=== PATIENT | male | born 1970 | race Two or more races ===

== ENCOUNTER → 2017-07-29 | Outpatient (REF) | payer MEDICARE, MEDICAID ==
[~2017-07-29] MED LIST: /CELE20CA; /CELE20CA OR; COLA100C2; DILA2TAB OR; EFFE37.527 PO; FLEC1.3D TD; FLEXERIL; FLEXERIL OR; LEVA750T7 PO; LIDO5DIS; LIDO5DIS TD; MS C15TA5 OR; NEUR300C; NEUR300C OR; NEUR600T PO; OPAN10TA16; OPAN10TA16 OR; OPANA ER; TOPA1TAB PO; TPS cream TOP; TRAM50TA2; TRAM50TA2 OR
[2017-07-29 11:24] LABS: BASO % 0.4 % (0.0-1.0); EOS # 0.2 K/mm3 (0.0-0.50); EOS % 2.4 % (0.0-3.0); LARGE UNSTAINED CELL # 0.1 K/mm3 (0.0-0.4); LYMPH # 1.7 K/mm3 (1.5-4.5); LYMPH % 25.1 % (24.0-44.0); MEAN CORPUSCULAR HGB CONC 35.7 g/dl (32.0-36.5); MEAN CORPUSCULAR VOLUME 89.4 fl (80.0-96.0); MONO # 0.3 K/mm3 (0.0-0.8); MONO % 5.1 % (0.0-5.0); NEUTROPHILS # 4.1 K/mm3 (1.8-7.7); PLATELET COUNT, AUTOMATED 233 k/mm3 (150-450); RED CELL DISTRIBUTION WIDTH 12.5 % (11.5-14.5); WHITE BLOOD COUNT 6.4 K/mm3 (4.0-10.0)
[2017-07-29 11:37] LABS: ALBUMIN 3.6 GM/DL (3.2-5.2); ALBUMIN/GLOBULIN RATIO 1.06 (1.00-1.93); BILIRUBIN,TOTAL 0.7 MG/DL (0.2-1.0); CREATININE FOR GFR 1.38 MG/DL (0.70-1.30); GLOMERULAR FILTRATION RATE 58.5 (>60)
== END ==
LOC: M SFHCPLAZ 09:36
PROVIDERS: ATTEND Physician Assistant Medical
DX: Z12.11 Encounter for screening for malignant neoplasm of colon (principal); Z13.220 Encounter for screening for lipoid disorders; Z12.5 Encounter for screening for malignant neoplasm of prostate; Z79.899 Other long term (current) drug therapy
CPT/HCPCS: 36415; 80053; 80061; 85025; G0103

== ENCOUNTER 2017-08-06 01:03 | Emergency (ER) | payer MEDICARE, MEDICAID ==
[~2017-08-06] VITALS: Ht 180.3 cm; Wt 103.7 kg
[~2017-08-06 01:03] MED LIST changes: -LEVA750T7 PO
[2017-08-06 01:07] VITALS: BP 123/79
[2017-08-06] MEDS ORDERED: IPRATROPIUM 0.5MG/ALBUTEROL 2.5MG INH SOL UD 3ML (DUONEB)(J7620) NEB ONE (02:15)
[2017-08-06 02:56] LABS: BASO % 0.4 % (0.0-1.0); EOS # 0.3 K/mm3 (0.0-0.50); EOS % 4.2 % (0.0-3.0); LARGE UNSTAINED CELL # 0.1 K/mm3 (0.0-0.4); LARGE UNSTAINED CELL % 1.7 % (0.0-4.0); LYMPH # 1.1 K/mm3 (1.5-4.5); LYMPH % 17.4 % (24.0-44.0); MEAN CORPUSCULAR HEMOGLOBIN 31.9 pg (27.0-33.0); MEAN CORPUSCULAR HGB CONC 35.8 g/dl (32.0-36.5); MEAN CORPUSCULAR VOLUME 89.3 fl (80.0-96.0); MONO # 0.3 K/mm3 (0.0-0.8); MONO % 5.5 % (0.0-5.0); NEUTROPHILS # 4.4 K/mm3 (1.8-7.7); NEUTROPHILS % 70.7 % (36.0-66.0); PLATELET COUNT, AUTOMATED 224 k/mm3 (150-450); RED CELL DISTRIBUTION WIDTH 12.2 % (11.5-14.5); WHITE BLOOD COUNT 6.2 K/mm3 (4.0-10.0)
[2017-08-06 03:06] LABS: ANION GAP 10 MEQ/L (8-16); BLOOD UREA NITROGEN 7 MG/DL (7-18); CALCIUM LEVEL 8.2 MG/DL (8.5-10.1); CARBON DIOXIDE LEVEL 28 MEQ/L (21-32); CHLORIDE LEVEL 107 MEQ/L (98-107); CREATININE FOR GFR 1.35 MG/DL (0.70-1.30); GLOMERULAR FILTRATION RATE > 60.0 (>60); GLUCOSE, FASTING 102 MG/DL (70-105); POTASSIUM SERUM 3.6 MEQ/L (3.5-5.1); SODIUM LEVEL 145 MEQ/L (136-145)
[2017-08-06] MEDS ORDERED: LEVA750T7 PO (03:42)
[2017-08-06] MEDS ORDERED: LevoFLOXacin 750 MG TABLET PO ONE (03:45)
[2017-08-06] MEDS ORDERED: ALBUTEROL 90 MCG/ACT 8GM HFA INHALER INH ONE (03:45)
--- NOTE | 2017-08-06 07:58 | REP ---
Clinical: Cough and dyspnea. Technique: PA and lateral. Comparison: 02/11/2012. Findings: Linear plate-like atelectasis in the left mid lung zone. Mediastinum and cardiac silhouette normal. Remainder of lung khanna are clear. No effusion. No pneumothorax. Skeletal structures are intact. Impression: Linear plate-like atelectasis in the left mid/lower lung zone. Signed by Jt Castro MD 08/06/2017 07:49 A
== END 2017-08-06 04:06 | disposition home or self-care (01) ==
LOC: M ED 01:03
DX: J18.9 Pneumonia, unspecified organism (principal)

== ENCOUNTER → 2017-08-20 | Outpatient (CLI) | payer MEDICARE, MEDICAID ==
[~2017-08-20] MED LIST changes: +LEVA750T7 PO
--- NOTE | 2017-08-21 06:48 | EEG ---
DATE OF PROCEDURE: 08/20/2017 REFERRING PHYSICIAN: Amrita Rae DIAGNOSIS: Convulsions. EEG NUMBER: [id number] HISTORY: The patient is a 46-year-old man with history of seizures. He stopped taking medications few years ago. He has not had recurrent seizures. This EEG was done to rule out epileptic potential. He is currently not taking any medications. TECHNICAL DESCRIPTION: This digital EEG was recorded by 21 scalp, ear and two EKG electrodes and was reviewed in bipolar and referential montages following reformatting in 10-20 international electrode placement system. INTERPRETATION: The patient was noted to be in awake and drowsy states during this EEG. Resting awake background rhythm consisted of well-formed posterior dominant rhythm with anterior/posterior gradient comprising of 9 Hz alpha activity measuring 15-40 microvolts in amplitude which was symmetric and reactive to eye opening. Anteriorly low voltage and mixed frequency activity was noted. Attenuation of posterior dominant rhythm was seen during transition into drowsiness. No sleep was achieved. Hyperventilation elicited mild theta slowing of background rhythm. Photic stimulation at 3-30 Hz elicited symmetric photic driving, especially at mid frequencies. No focal, lateralizing or epileptiform abnormalities were seen. No clinical or electrographic seizures were recorded. CONCLUSION: This EEG in awake and drowsy states is within normal limits.
== END ==
LOC: M SLEEP 08:23
PROVIDERS: ATTEND Physician Assistant Medical
DX: R56.9 Unspecified convulsions (principal)

== ENCOUNTER 2018-05-24 16:34 | Emergency (ER) | payer MEDICARE, MEDICAID ==
[2018-05-24] MEDS: LIDOCAINE 2% MDV 20 ML VIAL SC (19:45)
== END 2018-05-24 20:30 | disposition left against medical advice (07) ==
LOC: M ED 16:34
DX: S91.111A Laceration without foreign body of right great toe without damage to nail, initial encounter (principal); S93.104A Unspecified dislocation of right toe(s), initial encounter; W23.0XXA Caught, crushed, jammed, or pinched between moving objects, initial encounter; Y92.099 Unspecified place in other non-institutional residence as the place of occurrence of the external cause; Y93.9 Activity, unspecified; Y99.0 Civilian activity done for income or pay; Z53.21 Procedure and treatment not carried out due to patient leaving prior to being seen by health care provider
CPT/HCPCS: 73660

== ENCOUNTER → 2018-05-28 | Outpatient (CLI) | payer MEDICARE, MEDICAID | LOC: M WUC 08:30 | DX: S92.422D Displaced fracture of distal phalanx of left great toe, subsequent encounter for fracture with routine healing (principal); S93.112 Dislocation of interphalangeal joint of left great toe | CPT/HCPCS: 73630; G0463 ==

== ENCOUNTER → 2018-07-23 | Outpatient (REF) | payer MEDICARE, MEDICAID ==
[2018-07-23 13:39] LABS: BASO % 0.4 % (0.0-1.0); EOS # 0.2 10^3/uL (0.0-0.50); EOS % 2.2 % (0.0-3.0); HEMATOCRIT 47.1 % (42.0-52.0); HEMOGLOBIN 15.9 g/dl (13.5-17.5); IMMATURE GRANULOCYTE % 0.4 % (0-3.0); LYMPH # 1.8 10^3/uL (1.5-4.5); LYMPH % 22.3 % (24.0-44.0); MEAN CORPUSCULAR HEMOGLOBIN 31.1 pg (27.0-33.0); MEAN CORPUSCULAR HGB CONC 33.8 g/dl (32.0-36.5); MONO # 0.5 10^3/uL (0.0-0.8); NEUTROPHILS # 5.7 10^3/uL (1.8-7.7); NEUTROPHILS % 68.7 % (36.0-66.0); PLATELET COUNT, AUTOMATED 273 10^3/uL (150-450); RED BLOOD COUNT 5.12 10^6/uL (4.30-6.10); RED CELL DISTRIBUTION WIDTH 13.1 % (11.5-14.5); WHITE BLOOD COUNT 8.2 10^3/uL (4.0-10.0)
[2018-07-23 14:41] LABS: ALBUMIN 3.6 GM/DL (3.2-5.2); ALKALINE PHOSPHATASE 131 U/L (45-117); ALT/SGPT 47 U/L (12-78); ANION GAP 6 MEQ/L (8-16); AST/SGOT 27 U/L (7-37); BILIRUBIN,TOTAL 0.5 MG/DL (0.2-1.0); BLOOD UREA NITROGEN 13 MG/DL (7-18); CALCIUM LEVEL 8.7 MG/DL (8.5-10.1); CARBON DIOXIDE LEVEL 30 MEQ/L (21-32); CHLORIDE LEVEL 104 MEQ/L (98-107); CHOLESTEROL LEVEL 226 MG/DL (<200); CHOLESTEROL RISK RATIO 5.947 (<5); CREATININE FOR GFR 1.28 MG/DL (0.70-1.30); GLOMERULAR FILTRATION RATE > 60.0 (>60); GLUCOSE, FASTING 91 MG/DL (70-100); HDL CHOLESTEROL 38 MG/DL (>40); LDL CHOLESTEROL 131.4 MG/DL (<100); NON-HDL-C 188 MG/DL; PSA SCREENING 1.37 NG/ML (< 4.0); SODIUM LEVEL 140 MEQ/L (136-145); TOTAL PROTEIN 7.2 GM/DL (6.4-8.2); TRIGLYCERIDES LEVEL 283 MG/DL (<150)
== END ==
LOC: M SFHCPLAZ 10:45
DX: S92.422D Displaced fracture of distal phalanx of left great toe, subsequent encounter for fracture with routine healing (principal); R56.9 Unspecified convulsions (principal); Z12.5 Encounter for screening for malignant neoplasm of prostate; Z13.220 Encounter for screening for lipoid disorders; Z79.899 Other long term (current) drug therapy
CPT/HCPCS: 80053

== ENCOUNTER 2020-01-28 09:22 | Emergency (ER) | payer MEDICAID, MEDICARE, OTHER ==
[~2020-01-28] VITALS: Ht 182.9 cm; Wt 95.5 kg
[~2020-01-28 09:22] MED LIST changes: -/CELE20CA; -/CELE20CA OR; +CELE1CAP4; +CELE1CAP4 OR; +EFFE37.5 PO; -EFFE37.527 PO; +KEFL500C17 PO
[2020-01-28 09:27] VITALS: BP 112/73
[2020-01-28] MEDS ORDERED: ADACEL/BOOSTRIX VACCINE (DIPHTH/PERTUSS/ACELL/TETANUS)0.5ML SYR (90715) IM ONE (10:15)
[2020-01-28 10:33] LABS: BASO % 0.2 % (0.0-1.0); EOS # 0.1 10^3/uL (0.0-0.5); EOS % 0.9 % (0.0-3.0); LYMPH # 1.1 10^3/uL (1.5-5.0); LYMPH % 10.6 % (24.0-44.0); MEAN CORPUSCULAR HEMOGLOBIN 31.2 pg (27.0-33.0); MEAN CORPUSCULAR HGB CONC 34.1 g/dl (32.0-36.5); MEAN CORPUSCULAR VOLUME 91.5 fl (80.0-96.0); MONO # 0.5 10^3/uL (0.0-0.8); NEUTROPHILS # 8.4 10^3/uL (1.5-8.5); NEUTROPHILS % 82.8 % (36.0-66.0); PLATELET COUNT, AUTOMATED 240 10^3/uL (150-450); RED BLOOD COUNT 4.81 10^6/uL (4.30-6.10); WHITE BLOOD COUNT 10.1 10^3/uL (4.0-10.0)
[2020-01-28 10:57] LABS: ALBUMIN 3.8 GM/DL (3.2-5.2); BILIRUBIN,DIRECT 0.2 MG/DL (0.0-0.2); BILIRUBIN,TOTAL 0.7 MG/DL (0.2-1.0); CALCIUM LEVEL 8.5 MG/DL (8.5-10.1); CREATININE FOR GFR 1.45 MG/DL (0.70-1.30); GLOMERULAR FILTRATION RATE 54.6 (>56); POTASSIUM SERUM 4.2 MEQ/L (3.5-5.1); TOTAL PROTEIN 7.4 GM/DL (6.4-8.2)
--- NOTE | 2020-01-28 11:28 | REP ---
CT BRAIN WITHOUT IV CONTRAST: CT brain performed without IV contrast. Axial images are obtained with coronal reconstruction images. The ventricles are normal in size and position with no midline shift or mass effect. Wood-white differentiation is well maintained. There is no acute intracranial hemorrhage or extra-axial fluid collection. No skull fracture is seen. Mild fluid is seen in the right maxillary sinus. IMPRESSION: No evidence of acute intracranial hemorrhage, midline shift, or mass effect. No skull fracture is seen. There is mild fluid in the right maxillary sinus. Electronically Signed by Manjeet Wood MD 01/28/2020 06:42 P
--- NOTE | 2020-01-28 11:37 | REP ---
CT CERVICAL SPINE WITHOUT CONTRAST: CT cervical spine performed without IV contrast. Comparison made with prior study, [facility], 11/27/2008. There is an old fracture of the dens. There is chronic anterior translation of C2 with respect to C1. There is bony fusion between the anterior ring of C1 and the C2 vertebral body. There is surgical fusion again seen posteriorly of C1 and C2 with pedicle screws and bridging metallic rods. These are seen bilaterally . There is anterior cervical discectomy and fusion at C5-6 level. There is no acute fracture or dislocation. Rudimentary ribs are seen at the C7 level. There is diffuse narrowing, sclerosis, and spurring at the posterior facet joints. Spinal canal is adequate. No abnormal density is seen in the spinal canal. IMPRESSION: There appears to be an old fracture of the dens. There is anterior translation of C2 with respect to the anterior ring of C1 with bony fusion between C1 and C2 anteriorly and surgical fusion posteriorly. Findings are similar to the prior CT at [facility], 11/27/2008. There is anterior cervical discectomy and fusion at C5-6. No acute fracture or dislocation is visualized. Electronically Signed by Manjeet Wood MD 01/28/2020 06:43 P
[2020-01-28 11:45] LABS: AMORPHOUS SEDIMENT SMALL (NEGATIVE); APPEARANCE, URINE HAZY (CLEAR); BACTERIA, URINE AUTO NEGATIVE (NEGATIVE); BILIRUBIN, URINE AUTO NEGATIVE (NEGATIVE); BLOOD, URINE BLOOD NEGATIVE (NEGATIVE); COLOR, URINE YELLOW (YELLOW); GLUCOSE, URINE (UA) AUTO NEGATIVE (NEGATIVE); KETONE, URINE AUTO NEGATIVE (NEGATIVE); LEUKOCYTE ESTERASE, URINE AUTO NEGATIVE (NEGATIVE); MUCUS, URINE SMALL (NEGATIVE); NITRITE, URINE AUTO NEGATIVE (NEGATIVE); PROTEIN, URINE AUTO NEGATIVE (NEGATIVE); RBC, URINE AUTO 1 /HPF (0-3); SPECIFIC GRAVITY URINE AUTO 1.025 (1.002-1.035); SQUAMOUS EPITHELIAL CELL UR AU 0 /HPF (0-6); UROBILINOGEN, URINE AUTO 0.2 mg/dL (0.0-2.0); WBC, URINE AUTO 2 /HPF (0-3)
--- NOTE | 2020-01-28 12:41 | REP ---
PELVIS AND LEFT HIP: AP view of the pelvis and AP and frogleg views of left hip are performed. There is no evidence of acute fracture or dislocation. There are degenerative changes of the lower lumbar spine. Multiple metallic clips are seen in the upper pelvis. IMPRESSION: No acute fracture or dislocation. Electronically Signed by Manjeet Wood MD 01/28/2020 06:44 P
--- NOTE | 2020-01-28 12:42 | REP ---
LEFT FEMUR, AP AND LATERAL: There is no evidence of an acute fracture, dislocation or intrinsic bone disease. IMPRESSION: No fracture or dislocation. Electronically Signed by Manjeet Wood MD 01/28/2020 06:44 P
--- NOTE | 2020-01-28 12:42 | REP ---
CHEST: Two views. There is no evidence of acute infiltrate. No pleural effusion is seen. The heart is normal in size. The mediastinal silhouette is unremarkable. The visualized osseous structures are intact. IMPRESSION: No acute pulmonary disease. Electronically Signed by Manjeet Wood MD 01/28/2020 06:44 P
--- NOTE | 2020-01-28 14:13 | REP ---
STERNUM: Two views of the sternum demonstrate no fracture, dislocation, or intrinsic bone disease. IMPRESSION: No fracture or dislocation. Electronically Signed by Manjeet Wood MD 01/28/2020 06:50 P
== END 2020-01-28 14:19 | disposition home or self-care (01) ==
LOC: EDUNIT# 09:22 → M ED 09:22 → EDBD 09:22 → M ED 14:19
DX: S70.312A Abrasion, left thigh, initial encounter (principal); S00.81XA Abrasion of other part of head, initial encounter; S20.219A Contusion of unspecified front wall of thorax, initial encounter; S06.0X0A Concussion without loss of consciousness, initial encounter; R94.4 Abnormal results of kidney function studies; V63.5XXA Driver of heavy transport vehicle injured in collision with car, pick-up truck or van in traffic accident, initial encounter; Y92.9 Unspecified place or not applicable; Y93.9 Activity, unspecified; Y99.9 Unspecified external cause status; G40.909 Epilepsy, unspecified, not intractable, without status epilepticus; G89.29 Other chronic pain; M54.9 Dorsalgia, unspecified; F32.9 Major depressive disorder, single episode, unspecified; Z87.81 Personal history of (healed) traumatic fracture; Z98.1 Arthrodesis status

== ENCOUNTER → 2020-02-07 | Outpatient (CLI) | payer OTHER ==
--- NOTE | 2020-02-07 13:38 | REP ---
CT study of the lumbar spine without contrast: History: Gross hematuria. Numbness left anterior thigh. No comparison lumbar spine images. Findings: The patient is status post operative fusion of the upper sacrum for what appears to have been a S1, S2 severe spondylolisthesis possibly post-traumatic. An anteriorly positioned bone graft is seen across the site at the lumbosacral junction. This appearance is unchanged compared to a KUB study done October 19, 2005. The posterior elements are fused with bone grafting as well bilaterally at L5-S1. No acute fracture is seen. Lumbar vertebral body heights are preserved. Alignment is otherwise normal. No lumbar disc protrusion is appreciated. No neural foraminal narrowing is appreciated. There is minimal discogenic spurring at L3-4 and L2-3. A small vacuum phenomenon is seen in the 2-3 disc. No bony destructive lesion is seen. Impression: Remote prior operative fixation of sacral fracture and traumatic upper sacral spondylolisthesis with anterior and posterior fusion of the lumbosacral junction. Minimal degenerative disc changes. Otherwise negative. No acute bony abnormality. Electronically Signed by Stan Damon MD 02/07/2020 03:45 P
--- NOTE | 2020-02-07 13:45 | REP ---
CT STUDY OF THE THORACIC SPINE WITHOUT CONTRAST: HISTORY: Gross hematuria. Numbness of the left anterior thigh. FINDINGS: Preliminary digital managing consultant clinical professor radiograph demonstrates lower cervical spine fusion plating. Previous CT study of the cervical spine demonstrates that this is the across the C5-6 disc level. There are bilateral cervical ribs at this C7. There is a minimal dextroconvex curvature of the thoracic spine. Thoracic vertebral body heights are preserved. No thoracic vertebral or posterior element fracture is seen. Posterior rib cage appears intact. No paravertebral soft-tissue mass is appreciated. No bony destructive lesion is seen. No thoracic disc protrusion is appreciated. Visualized lung khanna are unremarkable. IMPRESSION: Unremarkable thoracic spine CT study. Status post lower cervical fusion plating. Electronically Signed by Stan Damon MD 02/07/2020 03:45 P
--- NOTE | 2020-02-07 13:49 | REP ---
CT of the abdomen and pelvis without IV or bowel contrast for gross hematuria: There are no comparisons. There are no renal calculi. There is no hydronephrosis. There is no perinephric stranding. There are no ureteral or bladder calculi. No bladder masses are identified. The visualized lung khanna are unremarkable. The unenhanced hepatic parenchyma, gallbladder, pancreas, spleen, adrenals, kidneys and abdominal aorta are unremarkable. The bowel and mesentery are unremarkable. There is no ascites or adenopathy. Pelvis: There are surgical clips at the cecal tip suggestive of appendectomy. There is no pelvic adenopathy or ascites. There is grade 5 anterolisthesis of L5 with overlapping of the L5 and S1 vertebral bodies. There is a surgical fusion at L5 /S1-S2 including a stabilization lashawn spanning the L5 vertebral body into the S1/S2 sacral elements. Impression: There are no renal, ureteral or bladder calculi. There is no hydronephrosis. In the absence of IV contrast the study is insensitive for renal masses. No bladder masses are identified. There is no bowel distension or obstruction. No bowel wall thickening. No mesenteric adenopathy, mass or ascites. Appendectomy. Grade five spondylolisthesis of L5 with overlapping of L5 and S1 and surgical fusion at L5/S1 as described. Electronically Signed by Manjeet Shelton MD 02/07/2020 01:40 P
--- NOTE | 2020-02-07 14:22 | REP ---
REASON: Left side anterior thigh pain. Three views obtained. AP and lateral views of the lumbar spine show previous fusion procedure of L4-5 and L5-S1. Posteriorly with fusion at the L5-S1 disc space. Surgical clips are seen anteriorly. There is anterior lipping at every level. There is posterior disc space narrowing at every level. Vertebral body height is within normal limits. Please review report from CT lumbar spine obtained 02/07/2020 for further information. IMPRESSION: Chronic changes as described above. Electronically Signed by Hernesto Cerrato DO 02/07/2020 02:46 P
== END ==
LOC: M RAD 12:14
PROVIDERS: ATTEND Physician Assistant Medical
DX: R31.0 Gross hematuria (principal); R20.0 Anesthesia of skin; Z98.1 Arthrodesis status; M51.36 Other intervertebral disc degeneration, lumbar region; Z90.49 Acquired absence of other specified parts of digestive tract

== ENCOUNTER → 2020-02-07 | Outpatient (REF) | payer OTHER ==
[2020-02-07 13:54] LABS: BASO % 0.4 % (0.0-1.0); EOS # 0.3 10^3/uL (0.0-0.5); EOS % 3.9 % (0.0-3.0); HEMATOCRIT 44.4 % (42.0-52.0); LYMPH # 1.7 10^3/uL (1.5-5.0); MEAN CORPUSCULAR HEMOGLOBIN 31.2 pg (27.0-33.0); MEAN CORPUSCULAR HGB CONC 33.8 g/dl (32.0-36.5); MEAN CORPUSCULAR VOLUME 92.3 fl (80.0-96.0); MONO # 0.4 10^3/uL (0.0-0.8); MONO % 5.8 % (0.0-5.0); NEUTROPHILS # 4.4 10^3/uL (1.5-8.5); NEUTROPHILS % 64.5 % (36.0-66.0); PLATELET COUNT, AUTOMATED 293 10^3/uL (150-450); RED BLOOD COUNT 4.81 10^6/uL (4.30-6.10); WHITE BLOOD COUNT 6.9 10^3/uL (4.0-10.0)
[2020-02-07 14:13] LABS: ALBUMIN 3.7 GM/DL (3.2-5.2); ALT/SGPT 34 U/L (12-78); BILIRUBIN,TOTAL 0.5 MG/DL (0.2-1.0); BLOOD UREA NITROGEN 13 MG/DL (7-18); CALCIUM LEVEL 9.2 MG/DL (8.5-10.1); CARBON DIOXIDE LEVEL 26 MEQ/L (21-32); CHLORIDE LEVEL 107 MEQ/L (98-107); CREATININE FOR GFR 1.31 MG/DL (0.70-1.30); GLOMERULAR FILTRATION RATE > 60.0 (>56); GLUCOSE, FASTING 106 MG/DL (70-100); SODIUM LEVEL 139 MEQ/L (136-145); TOTAL PROTEIN 7.2 GM/DL (6.4-8.2)
== END ==
LOC: M SFHCPLAZ 11:21
PROVIDERS: ATTEND Physician Assistant Medical
DX: R31.0 Gross hematuria (principal)

== ENCOUNTER → 2020-02-14 | Outpatient (CLI) | payer OTHER ==
--- NOTE | 2020-02-14 15:39 | REP ---
Left lower extremity Duplex Doppler venous ultrasound: Real time compression and duplex Doppler interrogation of the left lower extremity deep venous system is performed. The left common femoral, superficial femoral and popliteal veins are fully compressible with transducer pressure and demonstrate normal spontaneous and phasic flow, without evidence of deep venous thrombosis. Impression: No evidence of deep venous thrombosis of the left lower extremity femoral popliteal venous system. Electronically Signed by Manjeet Wood MD 02/14/2020 03:31 P
== END ==
LOC: M RAD 15:03
PROVIDERS: ATTEND Physician Assistant
DX: M79.605 Pain in left leg (principal)

== ENCOUNTER → 2020-03-13 | Outpatient (REF) | payer OTHER ==
[2020-03-13 13:53] LABS: BASO % 0.3 % (0.0-1.0); EOS # 0.2 10^3/uL (0.0-0.5); EOS % 2.7 % (0.0-3.0); HEMATOCRIT 44.3 % (42.0-52.0); HEMOGLOBIN 14.9 g/dl (13.5-17.5); LYMPH # 1.6 10^3/uL (1.5-5.0); LYMPH % 23.4 % (24.0-44.0); MEAN CORPUSCULAR HGB CONC 33.6 g/dl (32.0-36.5); MEAN CORPUSCULAR VOLUME 92.1 fl (80.0-96.0); MONO # 0.4 10^3/uL (0.0-0.8); MONO % 6.3 % (0.0-5.0); NEUTROPHILS # 4.5 10^3/uL (1.5-8.5); NEUTROPHILS % 66.6 % (36.0-66.0); PLATELET COUNT, AUTOMATED 242 10^3/uL (150-450); RED BLOOD COUNT 4.81 10^6/uL (4.30-6.10); WHITE BLOOD COUNT 6.7 10^3/uL (4.0-10.0)
[2020-03-13 14:04] LABS: ALBUMIN 3.6 GM/DL (3.2-5.2); ALT/SGPT 47 U/L (12-78); BILIRUBIN,TOTAL 0.5 MG/DL (0.2-1.0); BLOOD UREA NITROGEN 13 MG/DL (7-18); CALCIUM LEVEL 8.7 MG/DL (8.5-10.1); CARBON DIOXIDE LEVEL 27 MEQ/L (21-32); CHLORIDE LEVEL 107 MEQ/L (98-107); CHOLESTEROL LEVEL 213 MG/DL (<200); CHOLESTEROL RISK RATIO 6.085 (<5); CREATININE FOR GFR 1.19 MG/DL (0.70-1.30); GLOMERULAR FILTRATION RATE > 60.0 (>56); GLUCOSE, FASTING 85 MG/DL (70-100); HDL CHOLESTEROL 35 MG/DL (>40); LDL CHOLESTEROL 139 MG/DL (<100); NON-HDL-C 178 MG/DL; POTASSIUM SERUM 4.1 MEQ/L (3.5-5.1); SODIUM LEVEL 139 MEQ/L (136-145); TOTAL PROTEIN 7.1 GM/DL (6.4-8.2); TRIGLYCERIDES LEVEL 194 MG/DL (<150)
[2020-03-13 14:25] LABS: HEMOGLOBIN A1c 5.1 %
== END ==
LOC: M SFHCPLAZ 11:01
PROVIDERS: ATTEND Physician Assistant Medical
DX: R56.9 Unspecified convulsions (principal); Z13.220 Encounter for screening for lipoid disorders; Z12.5 Encounter for screening for malignant neoplasm of prostate; R31.0 Gross hematuria; E66.9 Obesity, unspecified
CPT/HCPCS: 36415; 80053; 80061; 83036; 85025; G0103

== ENCOUNTER → 2020-04-04 | Outpatient (REF) | payer OTHER ==
[2020-04-04 14:33] LABS: ALT/SGPT 55 U/L (12-78); BILIRUBIN,TOTAL 0.6 MG/DL (0.2-1.0); BLOOD UREA NITROGEN 12 MG/DL (7-18); CALCIUM LEVEL 9.1 MG/DL (8.5-10.1); CARBON DIOXIDE LEVEL 29 MEQ/L (21-32); CHLORIDE LEVEL 107 MEQ/L (98-107); CHOLESTEROL LEVEL 231 MG/DL (<200); CHOLESTEROL RISK RATIO 6.078 (<5); CPK CREATINE PHOSPHOKINASE 141 U/L (39-308); CREATININE FOR GFR 1.38 MG/DL (0.70-1.30); GLOMERULAR FILTRATION RATE 57.8 (>56); GLUCOSE, FASTING 105 MG/DL (70-100); HDL CHOLESTEROL 38 MG/DL (>40); LDL CHOLESTEROL 158 MG/DL (<100); NON-HDL-C 193 MG/DL; POTASSIUM SERUM 4.4 MEQ/L (3.5-5.1); SODIUM LEVEL 141 MEQ/L (136-145); TOTAL PROTEIN 7.7 GM/DL (6.4-8.2); TRIGLYCERIDES LEVEL 173 MG/DL (<150)
[2020-04-04 18:13] LABS: HIV 1&2 SCREEN CENTAUR NEGATIVE (NEGATIVE)
[2020-04-06 10:07] LABS: HEPATITIS B SURFACE ANTIGEN NEGATIVE (NEGATIVE)
[2020-04-07 00:06] LABS: HSV IgM TYPES 1&2 <0.91 Ratio (0.00-0.90)
== END ==
LOC: M PLALAB 09:50
PROVIDERS: ATTEND Physician Assistant Medical
DX: E78.5 Hyperlipidemia, unspecified (principal)
CPT/HCPCS: 36415; 80053; 80061; 82550; 86694; 86780; 87340; 87389; G0472

== ENCOUNTER 2022-05-01 22:39 | Emergency (ER) | payer OTHER ==
[~2022-05-01] VITALS: Ht 180.3 cm; Wt 113.4 kg
[2022-05-01 22:40] VITALS: BP 127/68
[2022-05-01] MEDS ORDERED: DELS1LIQ3 PO (22:45)
[2022-05-01] MEDS ORDERED: ACET-861 PO (22:45)
== END 2022-05-02 02:23 | disposition left against medical advice (07) ==
LOC: M ED 22:39
DX: Z53.21 Procedure and treatment not carried out due to patient leaving prior to being seen by health care provider (principal)

== ENCOUNTER 2022-05-13 10:07 | Emergency (ER) | payer MEDICARE, OTHER ==
[~2022-05-13] VITALS: Ht 180.3 cm; Wt 110.6 kg
[~2022-05-13 10:07] MED LIST changes: +ACET-861 PO; +DELS1LIQ3 PO
[2022-05-13 12:23] LABS: BASO % 0.3 % (0.0-1.0); EOS # 0.2 10^3/uL (0.0-0.5); HEMATOCRIT 41.2 % (42.0-52.0); LYMPH % 22.6 % (24.0-44.0); MEAN CORPUSCULAR HEMOGLOBIN 30.9 pg (27.0-33.0); MEAN CORPUSCULAR VOLUME 90.9 fl (80.0-96.0); MONO # 0.5 10^3/uL (0.0-0.8); MONO % 5.3 % (2.0-8.0); NEUTROPHILS % 69.3 % (36.0-66.0); PLATELET COUNT, AUTOMATED 326 10^3/uL (150-450); RED BLOOD COUNT 4.53 10^6/uL (4.30-6.10); WHITE BLOOD COUNT 8.6 10^3/uL (4.0-10.0)
[2022-05-13] MEDS ORDERED: PANTOPRAZOLE 40MG VIAL IV ONE (12:25)
[2022-05-13] MEDS ORDERED: NS 1,000 ML IV ONE (12:25)
[2022-05-13 12:29] LABS: ALBUMIN 3.6 GM/DL (3.2-5.2); BILIRUBIN,DIRECT 0.2 MG/DL (0.0-0.2); BILIRUBIN,TOTAL 0.6 MG/DL (0.2-1.0); TOTAL PROTEIN 7.8 GM/DL (6.4-8.2)
[2022-05-13] MEDS ORDERED: ISOVUE-370 76% 100ML VIAL As Ordered ONE (12:56)
[2022-05-13 13:21] LABS: CK-MB VALUE MASS 2.5 NG/ML (<3.6); MB/CK RELATIVE INDEX 1.52 (< OR =4)
[2022-05-13] MEDS ORDERED: PROT1TAB2 PO (14:17)
[2022-05-13] MEDS ORDERED: CARA1TAB6 PO (14:17)
[2022-05-13] MEDS ORDERED: ONDA4TAB6 PO (14:17)
[2022-05-13 14:22] VITALS: BP 124/75
== END 2022-05-13 14:36 | disposition home or self-care (01) ==
LOC: M ED 10:07
DX: K21.9 Gastro-esophageal reflux disease without esophagitis (principal); R00.1 Bradycardia, unspecified; R91.8 Other nonspecific abnormal finding of lung field; E66.9 Obesity, unspecified; R56.9 Unspecified convulsions; M54.9 Dorsalgia, unspecified; F32.9 Major depressive disorder, single episode, unspecified
CPT/HCPCS: 74177; 80047; 80076; 82550; 82553; 83690; 84484; 85025; 93005; 96361; 96374; 99284; C9113; Q9967

== ENCOUNTER → 2023-09-16 | Outpatient (REF) | payer MEDICARE ==
[~2023-09-16] MED LIST changes: +CARA1TAB6 PO; +ONDA4TAB6 PO; +PROT1TAB2 PO
== END ==
LOC: M SFHCPLAZ 13:05
PROVIDERS: ATTEND Physician Assistant Medical
DX: Z79.899 Other long term (current) drug therapy (principal); B97.89 Other viral agents as the cause of diseases classified elsewhere

== ENCOUNTER → 2023-10-20 | Outpatient (CLI) | payer MEDICARE | LOC: M RAD 07:59 | PROVIDERS: ATTEND Physician Assistant Medical | DX: R91.8 Other nonspecific abnormal finding of lung field (principal) ==

== ENCOUNTER → 2024-11-04 | Outpatient (REF) | payer MEDICARE ==
[~2024-11-04] MED LIST changes: -EFFE37.5 PO; +EFFE37.52 PO; +ONDA-282 PO; -ONDA4TAB6 PO
== END ==
LOC: M SFHCPLAZ 10:35
PROVIDERS: ATTEND Physician Assistant Medical
DX: R16.1 Splenomegaly, not elsewhere classified (principal); R04.2 Hemoptysis; R31.0 Gross hematuria; E78.5 Hyperlipidemia, unspecified; R56.9 Unspecified convulsions; E66.9 Obesity, unspecified; Z12.5 Encounter for screening for malignant neoplasm of prostate; R91.8 Other nonspecific abnormal finding of lung field

== ENCOUNTER → 2024-11-08 | Outpatient (CLI) | payer MEDICARE ==
[2024-11-08 10:54] LABS: BASO % 0.5 % (0.0-1.0); EOS # 0.2 10^3/uL (0.0-0.5); EOS % 3.6 % (0.0-3.0); HEMATOCRIT 42.5 % (42.0-52.0); HEMOGLOBIN 14.4 g/dl (13.5-17.5); LYMPH # 1.3 10^3/uL (1.5-5.0); LYMPH % 21.7 % (24.0-44.0); MEAN CORPUSCULAR HEMOGLOBIN 30.9 pg (27.0-33.0); MEAN CORPUSCULAR HGB CONC 33.9 g/dl (32.0-36.5); MEAN CORPUSCULAR VOLUME 91.2 fl (80.0-96.0); MONO # 0.3 10^3/uL (0.0-0.8); MONO % 4.9 % (2.0-8.0); NEUTROPHILS # 4.2 10^3/uL (1.5-8.5); NEUTROPHILS % 68.8 % (36.0-66.0); PLATELET COUNT, AUTOMATED 258 10^3/uL (150-450); RED BLOOD COUNT 4.66 10^6/uL (4.30-6.10); WHITE BLOOD COUNT 6.1 10^3/uL (4.0-10.0)
[2024-11-08 11:19] LABS: PSA SCREENING 0.96 NG/ML (< 4.00)
[2024-11-08 11:23] LABS: ALBUMIN 3.5 G/DL (3.2-5.2); ALKALINE PHOSPHATASE 124 U/L (40-129); ALT/SGPT 46 U/L (7.0-40); AST/SGOT 25 U/L (<34); BILIRUBIN,TOTAL 0.6 MG/DL (0.3-1.2); BLOOD UREA NITROGEN 11 MG/DL (9-23); CALCIUM LEVEL 8.8 MG/DL (8.5-10.1); CARBON DIOXIDE LEVEL 25 MMOL/L (20-31); CHLORIDE LEVEL 105 MMOL/L (98-107); CHOLESTEROL LEVEL 202 MG/DL (<200); CHOLESTEROL RISK RATIO 5.61 (<5); CREATININE FOR GFR 1.29 MG/DL (0.70-1.30); FREE T4 1.22 NG/DL (0.89-1.76); GLOMERULAR FILTRATION RATE > 60.0 (>56); GLUCOSE, FASTING 122 MG/DL (60-100); LDL CHOLESTEROL 132.6 MG/DL (<100); POTASSIUM SERUM 3.6 MMOL/L (3.5-5.1); SODIUM LEVEL 142 MMOL/L (136-145); THYROID STIMULATING HORMONE 2.518 uIU/ML (0.55-4.78); TOTAL PROTEIN 6.9 G/DL (5.7-8.2); TRIGLYCERIDES LEVEL 167 MG/DL (<150)
[2024-11-10 07:57] LABS: QuantiFERON-TB Gold Plus NEGATIVE (NEGATIVE)
== END ==
LOC: M WUC 08:37
PROVIDERS: ATTEND Physician Assistant Medical
DX: R16.1 Splenomegaly, not elsewhere classified (principal); R04.2 Hemoptysis; R31.0 Gross hematuria; E78.00 Pure hypercholesterolemia, unspecified; Z12.5 Encounter for screening for malignant neoplasm of prostate
CPT/HCPCS: 36415; 80053; 80061; 83036; 84439; 84443; 85025; 86480; G0103

== ENCOUNTER 2025-01-01 00:26 | Emergency (ER) | payer MEDICARE, OTHER ==
[~2025-01-01] VITALS: Ht 180.3 cm; Wt 128.6 kg
[2025-01-01 00:31] VITALS: TEMP 100
[2025-01-01 01:27] LABS: BASO % 0.2 % (0.0-1.0); EOS # 0.2 10^3/uL (0.0-0.5); EOS % 1.7 % (0.0-3.0); HEMOGLOBIN 14.1 g/dl (13.5-17.5); LYMPH % 19.4 % (24.0-44.0); MEAN CORPUSCULAR HEMOGLOBIN 31.1 pg (27.0-33.0); MEAN CORPUSCULAR HGB CONC 35.3 g/dl (32.0-36.5); MEAN CORPUSCULAR VOLUME 88.3 fl (80.0-96.0); MONO # 0.5 10^3/uL (0.0-0.8); MONO % 4.9 % (2.0-8.0); NEUTROPHILS # 7.4 10^3/uL (1.5-8.5); NEUTROPHILS % 73.4 % (36.0-66.0); PLATELET COUNT, AUTOMATED 282 10^3/uL (150-450); RED BLOOD COUNT 4.53 10^6/uL (4.30-6.10); WHITE BLOOD COUNT 10.1 10^3/uL (4.0-10.0)
[2025-01-01 01:38] LABS: INR 1.01; PARTIAL THROMBOPLASTIN TIME 28.5 SECONDS (24.8-34.2); PROTHROMBIN TIME 13.6 SECONDS (12.5-14.5)
[2025-01-01 01:57] LABS: ALBUMIN 3.4 G/DL (3.2-5.2); BILIRUBIN,DIRECT 0.2 MG/DL (<0.4); BILIRUBIN,TOTAL 0.7 MG/DL (0.3-1.2); CALCIUM LEVEL 8.5 MG/DL (8.5-10.1); CREATININE FOR GFR 1.32 MG/DL (0.70-1.30); GLOMERULAR FILTRATION RATE 59.7 (>56); POTASSIUM SERUM 3.9 MMOL/L (3.5-5.1)
[2025-01-01] MEDS: ONDANSETRON 4MG 2ML VIAL IV ONE (02:03)
[2025-01-01] MEDS: KETOROLAC 30 MG/ML 1ML VIAL IV ONE (02:04)
[2025-01-01] MEDS ORDERED: ISOVUE-370 76% 100ML VIAL As Ordered ONE (02:09)
[2025-01-01 03:36] LABS: KETONE, URINE AUTO RFX NEGATIVE (NEGATIVE); LEUKOCYTE ESTERASE UR AUTO RFX NEGATIVE (NEGATIVE); MUCUS, URINE RFX SMALL (NEGATIVE); NITRITE, URINE AUTO RFX NEGATIVE (NEGATIVE); RBC, URINE AUTO RFX 1 /HPF (0-3); SQUAM EPITHELIAL CELL UR AURFX 0 /HPF (0-6); WBC, URINE AUTO RFX 1 /HPF (0-3)
[2025-01-01] MEDS ORDERED: ONDA-282 PO (05:19)
[2025-01-01] MEDS ORDERED: KETO10TAB PO (05:19)
[2025-01-01 05:23] VITALS: O2SAT 95
[2025-01-01 05:30] VITALS: BP 113/57
[2025-01-01] MEDS: OXYCODONE/APAP 5MG/325MG(HOME DOSE PACK) PO ONE (05:33)
== END 2025-01-01 05:40 | disposition home or self-care (01) ==
LOC: M ED 00:26
DX: S22.42XA Multiple fractures of ribs, left side, initial encounter for closed fracture (principal); W10.8XXA Fall (on) (from) other stairs and steps, initial encounter; Y92.9 Unspecified place or not applicable; Y93.9 Activity, unspecified; Y99.9 Unspecified external cause status; R56.9 Unspecified convulsions; Z86.73 Personal history of transient ischemic attack (TIA), and cerebral infarction without residual deficits
CPT/HCPCS: 70450; 71260; 74177; 80048; 80076; 81001; 83690; 85025; 85610; 85730; 93041; 96374; 96375; 99285; J1885; J2405; Q9967

== ENCOUNTER → 2025-01-11 | Outpatient (CLI) | payer MEDICARE ==
[~2025-01-11] MED LIST changes: +KETO10TAB PO
[2025-01-11 15:02] LABS: BASO % 0.5 % (0.0-1.0); EOS # 0.4 10^3/uL (0.0-0.5); EOS % 4.8 % (0.0-3.0); HEMATOCRIT 40.8 % (42.0-52.0); HEMOGLOBIN 13.8 g/dl (13.5-17.5); LYMPH # 1.8 10^3/uL (1.5-5.0); LYMPH % 21.9 % (24.0-44.0); MEAN CORPUSCULAR HEMOGLOBIN 30.8 pg (27.0-33.0); MEAN CORPUSCULAR HGB CONC 33.8 g/dl (32.0-36.5); MEAN CORPUSCULAR VOLUME 91.1 fl (80.0-96.0); MONO # 0.5 10^3/uL (0.0-0.8); MONO % 6.4 % (2.0-8.0); NEUTROPHILS # 5.3 10^3/uL (1.5-8.5); PLATELET COUNT, AUTOMATED 302 10^3/uL (150-450); RED BLOOD COUNT 4.48 10^6/uL (4.30-6.10)
[2025-01-11 15:42] LABS: LIPASE 35 U/L (12-53)
[2025-01-11 15:44] LABS: ALBUMIN 3.4 G/DL (3.2-5.2); ALKALINE PHOSPHATASE 140 U/L (40-129); ALT/SGPT 49 U/L (7.0-40); AST/SGOT 20 U/L (<34); BILIRUBIN,TOTAL 0.5 MG/DL (0.3-1.2); BLOOD UREA NITROGEN 15 MG/DL (9-23); CALCIUM LEVEL 8.6 MG/DL (8.5-10.1); CARBON DIOXIDE LEVEL 26 MMOL/L (20-31); CHLORIDE LEVEL 105 MMOL/L (98-107); CREATININE FOR GFR 1.31 MG/DL (0.70-1.30); GLOMERULAR FILTRATION RATE > 60.0 (>56); GLUCOSE, FASTING 85 MG/DL (60-100); POTASSIUM SERUM 4.2 MMOL/L (3.5-5.1); SODIUM LEVEL 141 MMOL/L (136-145); TOTAL PROTEIN 6.8 G/DL (5.7-8.2)
== END ==
LOC: M PLALAB 13:41
PROVIDERS: ATTEND Physician Assistant Medical
DX: S22.42XG Multiple fractures of ribs, left side, subsequent encounter for fracture with delayed healing (principal); R93.89 Abnormal findings on diagnostic imaging of other specified body structures; S36.209S Unspecified injury of unspecified part of pancreas, sequela; Z79.899 Other long term (current) drug therapy; T14.8XXA Other injury of unspecified body region, initial encounter; M54.2 Cervicalgia; R11.0 Nausea; W19.XXXD Unspecified fall, subsequent encounter
CPT/HCPCS: 36415; 80053; 83690; 85025; 96372; G0463; J1885

== ENCOUNTER → 2025-01-11 | Outpatient (REF) | payer MEDICARE | LOC: M SFHCPLAZ 12:57 | PROVIDERS: ATTEND Physician Assistant Medical | DX: S22.42XG Multiple fractures of ribs, left side, subsequent encounter for fracture with delayed healing (principal); R93.89 Abnormal findings on diagnostic imaging of other specified body structures; S36.209S Unspecified injury of unspecified part of pancreas, sequela ==

== ENCOUNTER → 2025-01-23 | Outpatient (CLI) | payer MEDICARE | LOC: M PLAIMG 11:21 | PROVIDERS: ATTEND Physician Assistant Medical | DX: M54.2 Cervicalgia (principal) ==

== ENCOUNTER → 2025-03-20 | Outpatient (CLI) | payer MEDICARE ==
[2025-03-20 17:04] LABS: HEMOGLOBIN A1c 4.6 % (4.0-6.0)
== END ==
LOC: M PLALAB 13:45
PROVIDERS: ATTEND Physician Assistant Medical
DX: E66.01 Morbid (severe) obesity due to excess calories (principal)

== ENCOUNTER → 2025-04-04 | Outpatient (CLI) | payer MEDICARE | LOC: M SLEEP HO 11:46 | PROVIDERS: ATTEND Physician Assistant Medical | DX: G47.33 Obstructive sleep apnea (adult) (pediatric) (principal); R40.0 Somnolence; E66.01 Morbid (severe) obesity due to excess calories ==

== ENCOUNTER → 2025-10-18 | Outpatient (REF) | payer MEDICARE ==
[2025-10-18 14:12] LABS: ALT/SGPT 56.0 U/L (7.0-40); AST/SGOT 33.0 U/L (<34); CALCIUM LEVEL 8.6 MG/DL (8.5-10.1); CARBON DIOXIDE LEVEL 25.0 MMOL/L (20-31); CHLORIDE LEVEL 105.0 MMOL/L (98-107); CHOLESTEROL LEVEL 218.0 MG/DL (<200); CHOLESTEROL RISK RATIO 5.87 (<5); CPK CREATINE PHOSPHOKINASE 215.0 U/L (46-171); CREATININE FOR GFR 1.24 MG/DL (0.70-1.30); GLOMERULAR FILTRATION RATE 68.2 (>56); LDL CHOLESTEROL 129.1 MG/DL (<100); NON-HDL-C 180.9 MG/DL; POTASSIUM SERUM 4.4 MMOL/L (3.5-5.1); SODIUM LEVEL 141.0 MMOL/L (136-145); TRIGLYCERIDES LEVEL 259.0 MG/DL (<150)
== END ==
LOC: M SFHCPLAZ 09:53
PROVIDERS: ATTEND Physician Assistant Medical
DX: E78.5 Hyperlipidemia, unspecified (principal); Z12.11 Encounter for screening for malignant neoplasm of colon